=== PATIENT | female | born 1940 | race Caucasian/White ===

== ENCOUNTER 2023-07-23 06:48 | Day surgery (SDC) | payer OTHER ==
[~2023-07-23] VITALS: Ht 165.1 cm; Wt 83.4 kg
[~2023-07-23 06:48] MED LIST: ACET1TAB37 PO; AMIL25TA PO; CALC600T60 PO; CEPH250T PO; CEPH25SS PO; DILT1CAP46 PO; DILT300C17 PO; DILT300C21 PO; DILT300C52 PO; EQL50TAB2 PO; FENO200C23 PO; FENO200C24 PO; GABA-1171 PO; GLIM1TAB4 PO; GLIM2TAB4 PO; HYDR-3490 PO; IPRA0.00 INH; LEVO25TA5 PO; LISI40TA4 PO; OMEP-173 PO; POTA-151 PO; PROBCAP14 PO; QC F0.52 PO; SYMB16INH INH
[2023-07-23] MEDS ORDERED: LR 1,000 ML IV SCH (07:00)
[2023-07-23] MEDS ORDERED: LIDOCAINE 2% 100MG/5ML SDV (FOR ANES.) As Ordered ONE (07:02)
[2023-07-23] MEDS ORDERED: propofoL 200 MG/20 ML VIAL As Ordered ONE (07:02)
[2023-07-23] MEDS ORDERED: ONDANSETRON 4MG 2ML VIAL As Ordered ONE (07:02)
[2023-07-23] MEDS ORDERED: ACETAMINOPHEN 1000MG 100ML IV BAG As Ordered ONE (07:47)
[2023-07-23] MEDS ORDERED: fentaNYL 100 MCG/2 ML INJECTION As Ordered ONE (08:04)
[2023-07-23] MEDS: ceFAZolin SOD 2 GM in IV 1 EA IV ONE (09:12)
[2023-07-23] MEDS ORDERED: ISOVUE-300 61% 100ML VIAL As Ordered ONE (10:30)
[2023-07-23] MEDS ORDERED: ONDANSETRON 4MG 2ML VIAL IV PRN (10:40)
[2023-07-23 12:00] VITALS: BP 180/72; TEMP 97; O2SAT 98
== END 2023-07-23 12:00 | disposition home or self-care (01) ==
LOC: M SDC 06:48
PROVIDERS: ATTEND Urology
DX: N20.0 Calculus of kidney (principal); E11.9 Type 2 diabetes mellitus without complications; I10 Essential (primary) hypertension; E03.9 Hypothyroidism, unspecified; K21.9 Gastro-esophageal reflux disease without esophagitis; J44.9 Chronic obstructive pulmonary disease, unspecified; Z79.899 Other long term (current) drug therapy; Z79.890 Hormone replacement therapy; Z79.2 Long term (current) use of antibiotics; Z79.51 Long term (current) use of inhaled steroids
CPT/HCPCS: 52356; 76000; 82365; C1769; C1894; C2617; J0131; J0690; J2405; J3010; Q9967

== ENCOUNTER → 2023-08-09 | Outpatient (REF) | payer OTHER ==
[2023-08-09 10:57] LABS: APPEARANCE, URINE CLOUDY (CLEAR); BACTERIA, URINE AUTO 1+ (NEGATIVE); BILIRUBIN, URINE AUTO NEGATIVE (NEGATIVE); BLOOD, URINE BLOOD 3+ (NEGATIVE); COLOR, URINE YELLOW (YELLOW); GLUCOSE, URINE (UA) AUTO NEGATIVE (NEGATIVE); KETONE, URINE AUTO NEGATIVE (NEGATIVE); LEUKOCYTE ESTERASE, URINE AUTO 2+ (NEGATIVE); MUCUS, URINE SMALL (NEGATIVE); NITRITE, URINE AUTO NEGATIVE (NEGATIVE); PROTEIN, URINE AUTO 2+ mg/dL (NEGATIVE); RBC, URINE AUTO 176 /HPF (0-3); SQUAMOUS EPITHELIAL CELL UR AU 3 /HPF (0-6); UROBILINOGEN, URINE AUTO 0.2 mg/dL (0.0-2.0); WBC, URINE AUTO 43 /HPF (0-3)
== END ==
LOC: M SMT 09:57
PROVIDERS: ATTEND Urology
DX: N39.0 Urinary tract infection, site not specified (principal)

== ENCOUNTER → 2024-02-10 | Outpatient (CLI) | payer OTHER ==
[~2024-02-10] MED LIST changes: -DILT1CAP46 PO; +DILT360C22 PO; -GLIM1TAB4 PO; +GLIM1TAB84 PO
== END ==
LOC: M PLAIMG 12:22
PROVIDERS: ATTEND Urology
DX: N20.0 Calculus of kidney (principal)